=== PATIENT | male | born 1950 | race Caucasian/White ===

== ENCOUNTER → 2020-02-25 | Outpatient (CLI) | payer OTHER ==
--- NOTE | 2020-03-20 18:15 | PF ---
[address] [address] PULMONARY FUNCTION REPORT Name: JONATHAN TEIXEIRA Room: [facility]#: [id number] Admission: 02/25/20 Attend Phys: Steven Chinchilla MD Discharge: Date of : 54 Report #: [id number] THIS REPORT FOR: //name// CC: Steven Chinchilla [facility] unknown DATE OF SERVICE: 02/25/2020 The FEV1/FVC ratio is decreased to 67% with an FVC normal at 83% and FEV1 mildly decreased to 75%. The YHC90-28 is also decreased to 44%. After the administration of a bronchodilator, there is a 45% increase in the QJK92-45. There is no significant increase in any of the other values mentioned. The patient's post-bronchodilator FEV1 is noted to be 3.16 liters. The patient's flow volume loop is concave upwards. IMPRESSION: Moderate obstruction with evidence of some reversibility as evidenced by an increase in VKF41-70 after the administration of a bronchodilator as described above. Only a spirometry was performed. <ELECTRONICALLY SIGNED> By: Pardeep Gunderson MD 03/20/20 1815 10 [id number] Gunderson MD /nt
== END ==
LOC: M.PUL 10:09
PROVIDERS: ATTEND Orthopaedic Surgery
DX: R06.02 Shortness of breath (principal)